=== PATIENT | female | born 1960 | race Caucasian/White ===

== ENCOUNTER 2022-08-16 06:00 | Day surgery (SDC) | payer OTHER ==
[~2022-08-16 06:00] MED LIST: CLONAZEPAM0.25 MG PO; EFFEXOR XR75 MG PO; HORIZANT300 MG PO; SYNTHROID137 MCG PO
[2022-08-16] MEDS ORDERED: IBU600 MG PO (10:54)
== END 2022-08-16 15:25 | disposition home or self-care (01) ==
LOC: CIR.AMB 06:00
PROVIDERS: ATTEND Obstetrics & Gynecology Gynecology
DX: N84.0 Polyp of corpus uteri (principal); Z20.822 Contact with and (suspected) exposure to COVID-19; E03.9 Hypothyroidism, unspecified; Z91.018 Allergy to other foods